=== PATIENT | female | born 1995 | race Caucasian/White ===

== ENCOUNTER 2018-05-10 01:35 | Outpatient (CLI) | payer SELFPAY ==
[2018-05-10 02:20] LABS: Amorphous Sediment,Urine Rare /hpf; Appearance,Urine Turbid (Clear); Bacteria,Urine Moderate /hpf; Bilirubin,Urine Negative (Negative); Blood,Urine Negative (Negative); Color,Urine Yellow; Glucose,Urine (UA) Negative (Negative); Ketones,Urine Negative (Negative); Leukocyte Esterase,Urine Negative (Negative); Mucus,Urine Few /hpf; Nitrite,Urine Negative (Negative); Protein,Urine Trace (Negative); Specific Gravity,Urine 1.019 (1.001-1.035); Squamous Epithelial Cell,Urine 1 /hpf (0-4); Urobilinogen,Urine <2.0 mg/dL (<2.0); WBC,Urine 6 /hpf (0-5)
[2018-05-10 03:08] VITALS: TEMP 99
[2018-05-10 03:11] VITALS: BP 131/63; PULSE 112; RESP 16
--- NOTE | 2018-05-10 07:09 | P.MSEPDOC ---
Presenting Problems - Arrival Data Date of Arrival on Unit: 05/10/18 Time of Arrival on Unit: 01:30 Mode of Transport: Stretcher - Complaint OB-Reason for Admission/Chief Complaint: Possible Onset of Labor Comment: contractions for one hour Medical History - Information : 3 Para: 2 Term: 0 : 1 Abortions: Spontaneous or Elective: 1 Number of Living Children: 1 - Gestational Age Gestational Age by PINEDA (wks/days): 23 Weeks and 0 Days - History Complications: Prior , Smoker Review of Systems - Review of Systems Constitutional: No problems Breast: No problems ENT: No problems Cardiovascular: No problems Respiratory: No problems Gastrointestinal: No problems Genitourinary: No problems Musculoskeletal: No problems Neurological: No problems Skin: No problems Vital Signs - Temperature Temperature: 99 F Temperature Source: Oral - Pulse Right Brachial Pulse Rate: 112 Pulse Assessment Method: Automatic Cuff - Respirations Respiratory Rate: 16 Oxygen Delivery Method: Room Air - Blood Pressure Right Arm Blood Pressure: 131/63 Blood Pressure Mean: 85 Blood Pressure Source: Automatic Cuff Medical Screen Scoring (Pre) - Cervical Exam Dilation: 0 cm = 0 Membranes: Intact - Uterine Contractions Frequency: N/A Duration: N/A Intensity: N/A - Maternal Vital Signs Maternal Temperature: N/A Maternal Blood Pressure: Systolic >139 = 2 Signs of Preeclampsia: Headache = 1 Maternal Respirations: N/A - Pain Assessment Pain Location and Character: Abdomen Pain Scale Used: Numeric (1 - 10) Pain Intensity: 10 Pain Description: *Acute, Cramping Pain Frequency: Intermittent Pain Duration: 1 Pain Duration Units: Hours Pain Behavior: Fidgeting Pain Aggravating Factors: Contractions Non-Pharmacological Interventions: Position/Reposition, Reduce Environmental Stimuli, Relaxation Technique - Maternal Trauma Maternal Trauma: N/A - Assessment Baseline FHR: 135 - Total Score Total Score (Pre): 3 - Level of Risk Level of Risk: Low (0-5) Physician Notification (Pre) - Physician Notified Physician Notified Date: 05/10/18 Physician Notified Time: 01:50 Spoke With: Kelly Rizo Order Received: Yes - Notification Comment Comment: send UA, do not send ffn, if UA unremarkable then may discharge home to follow up with Nhan Medical Screen Scoring (Post) - Cervical Exam Dilation: 0 cm = 0 Membranes: Intact - Uterine Contractions Frequency: N/A Duration: N/A Intensity: N/A - Maternal Vital Signs Maternal Temperature: N/A Maternal Blood Pressure: N/A Signs of Preeclampsia: N/A Maternal Respirations: N/A - Total Score Total Score (Post): 0 - Post Treatment Level of Risk Post Treatment Level of Risk: Low (0-5) Physician Notification (Post) - Physician Notified Physician Notified Time: 02:15 Spoke With: Kelly - Notification Comment Comment: UA unremarkable, pt sleeping and no longer having pain, appt with Nhan Saturday and Meghan Saturday Disposition - Disposition OB Disposition: Discharge to home, Written follow up instructions reviewed Discharge Date: 05/10/18 Discharge Time: 02:35 I agree with the RN Medical Screening Exam: Yes Risk & Benefit of care provided described in d/c instruction: Yes Diagnosis: FALSE LABOR BEFORE 37 COMPLETED WEEKS OF GEST, THIRD TRI
== END 2018-05-10 02:35 | disposition home or self-care (01) ==
LOC: FBPOP 01:35
PROVIDERS: ATTEND Obstetrics & Gynecology
DX: O47.03 False labor before 37 completed weeks of gestation, third trimester (principal); Z3A.23 23 weeks gestation of pregnancy
CPT/HCPCS: 81001; 99213

== ENCOUNTER → 2018-05-27 | Outpatient (CLI) | payer OTHER ==
[2018-05-27 11:49] LABS: HCT 37.2 % (34.0-46.0); HGB 12.6 gm/dL (11.4-16.0); MCH 29.1 pg (25.0-35.0); MCHC 33.9 g/dL (31.0-37.0); MCV 85.9 fL (80.0-100.0); Mean Platelet Volume 7.3; Platelet Count 212 k/uL (150-450); RBC 4.33 m/uL (3.80-5.40); RDW 15.1 % (11.5-15.5); WBC 16.8 k/uL (3.8-10.6)
== END | disposition home or self-care (01) ==
LOC: LABWHC1 10:24
PROVIDERS: ATTEND Obstetrics & Gynecology
DX: Z34.82 Encounter for supervision of other normal pregnancy, second trimester (principal)
CPT/HCPCS: 36415; 82950; 85027

== ENCOUNTER 2018-06-10 20:00 | Outpatient (CLI) | payer OTHER ==
[2018-06-10 20:53] LABS: Appearance,Urine Cloudy (Clear); Bacteria,Urine Moderate /hpf; Bilirubin,Urine Negative (Negative); Blood,Urine Trace (Negative); Budding Yeast,Urine Occasional /hpf; Color,Urine Yellow; Glucose,Urine (UA) Negative (Negative); Ketones,Urine 3+ (Negative); Leukocyte Esterase,Urine Large (Negative); Mucus,Urine Occasional /hpf; Nitrite,Urine Negative (Negative); Protein,Urine 1+ (Negative); RBC,Urine 16 /hpf (0-5); Specific Gravity,Urine 1.021 (1.001-1.035); Squamous Epithelial Cell,Urine 7 /hpf (0-4); WBC,Urine 21 /hpf (0-5)
[2018-06-10 21:09] VITALS: BP 118/61; PULSE 129; RESP 16; TEMP 96.8
[2018-06-10] MEDS ORDERED: ceFAZolin IN SWFI 2 GM/20 ML SYRINGE IVP STA (21:28)
[2018-06-10] MEDS ORDERED: LACTATED RINGERS 1,000 ML IV SCH (21:30)
--- NOTE | 2018-06-11 07:30 | P.MSEPDOC ---
Presenting Problems - Arrival Data Date of Arrival on Unit: 06/10/18 Time of Arrival on Unit: 20:00 Mode of Transport: Wheelchair - Complaint OB-Reason for Admission/Chief Complaint: Rule Out SROM, Pain, Signs/Symptoms UTI Comment: Patient has been having pain in bilateral thighs up to her groin that is aching and tender, states she is also having pain from the center of her abdomen to her vagina. States that she has been urinating a lot, and is unsure if her water is broke because she does feel like she is leaking, denies wearing a pad in at this time. No vaginal bleeding or intercourse in the last 24 hours. Patient had her last baby at approximately 34 weeks. Medical History - Information : 5 Para: 1 Term: 0 : 1 Abortions: Spontaneous or Elective: 3 Number of Living Children: 1 - Gestational Age Gestational Age by PINEDA (wks/days): 27 Weeks and 1 Days - History Complications: Prior , Smoker Review of Systems - Review of Systems Constitutional: No problems Breast: No problems ENT: No problems Cardiovascular: No problems Respiratory: No problems Gastrointestinal: No problems Genitourinary: No problems Musculoskeletal: No problems Neurological: No problems Skin: No problems Vital Signs - Temperature Temperature: 96.8 F Temperature Source: Temporal Artery Scan - Pulse Pulse Oximetery Pulse Rate: 129 Pulse Assessment Method: Pulse Oximetry - Respirations Respiratory Rate: 16 Oxygen Delivery Method: Room Air - Blood Pressure Sitting Blood Pressure: 118/61 Blood Pressure Mean: 80 Blood Pressure Source: Automatic Cuff Medical Screen Scoring (Pre) - Cervical Exam Dilation: 0 cm = 0 Membranes: Intact - Uterine Contractions Frequency: N/A Duration: N/A Intensity: N/A - Maternal Vital Signs Maternal Temperature: N/A Maternal Blood Pressure: N/A Signs of Preeclampsia: N/A Maternal Respirations: N/A - Pain Assessment Pain Location and Character: Abdomen, Thigh Pain Scale Used: Numeric (1 - 10) Pain Intensity: 8 Pain Management Goal: 3 Pain Description: *Acute, Aching, Sore Pain Radiation Location: 0 Pain Frequency: Intermittent Pain Duration: 20 Pain Duration Units: Minutes Pain Behavior: Vocalization Effects of Pain: 0 Pain Aggravating Factors: Activity - Maternal Trauma Maternal Trauma: N/A - Assessment Baseline FHR: 130 Heart Rate - NICHD Category: Category I (Normal) = 0 NST: Reactive Position: N/A Station: N/A - Total Score Total Score (Pre): 0 - Level of Risk Level of Risk: Low (0-5) Physician Notification (Pre) - Physician Notified Physician Notified Date: 06/10/18 Physician Notified Time: 20:29 Physician/Practitioner Notifed:: Dr. Danielson New Order Received: Yes - Notification Comment Comment: Dr. Danielson orders urinalysis, collect and send FFN, Collect amnisure, and gently check cervix, call physician with report. Dr. Danielson called with report at [phone] orders given to initiate IV and give patient a 1 L bolus of LR, give patient a one time dose of kefzol 2 grams ivpb, encourage patient to increase fluids, send urine for culture, and instruct patient to call office in the am to see if Dr. Justin would like to continue antibiotic treatment. Disposition - Disposition OB Disposition: Discharge to home, Written follow up instructions reviewed Discharge Date: 06/10/18 Discharge Time: 22:15 I agree with the RN Medical Screening Exam: Yes Risk & Benefit of care provided described in d/c instruction: Yes Diagnosis: DEHYDRATION
== END 2018-06-10 22:15 | disposition home or self-care (01) ==
LOC: FBPOP 20:00
PROVIDERS: ATTEND Obstetrics & Gynecology
DX: O21.1 Hyperemesis gravidarum with metabolic disturbance (principal); Z3A.27 27 weeks gestation of pregnancy
CPT/HCPCS: 59025; 96365; 96375; 84112; 82731; 81001; 87086; G0463; J0690; 99214

== ENCOUNTER 2018-06-23 20:59 | Outpatient (CLI) | payer OTHER ==
[2018-06-23 21:15] VITALS: BP 123/91; PULSE 110; RESP 18; TEMP 98.8
--- NOTE | 2018-06-24 08:27 | P.MSEPDOC ---
Presenting Problems - Arrival Data Date of Arrival on Unit: 06/23/18 Time of Arrival on Unit: 20:59 Mode of Transport: Wheelchair - Complaint OB-Reason for Admission/Chief Complaint: NST Comment: Decreased movement since "03:30 yesterday" Medical History - Information : 5 Para: 1 Term: 0 : 1 Abortions: Spontaneous or Elective: 3 Number of Living Children: 1 - Gestational Age Gestational Age by PINEDA (wks/days): 29 Weeks and 0 Days - History Complications: Prior , Smoker Review of Systems - Review of Systems Constitutional: No problems Breast: No problems ENT: No problems Cardiovascular: No problems Respiratory: No problems Gastrointestinal: No problems Genitourinary: No problems Musculoskeletal: No problems Neurological: No problems Skin: No problems Vital Signs - Temperature Temperature: 98.8 F Temperature Source: Oral - Pulse Pulse Oximetery Pulse Rate: 110 Pulse Assessment Method: Automatic Cuff - Respirations Respiratory Rate: 18 Oxygen Delivery Method: Room Air - Blood Pressure Sitting Blood Pressure: 123/91 Blood Pressure Mean: 101 Blood Pressure Source: Automatic Cuff Medical Screen Scoring (Pre) - Cervical Exam Dilation: Exam Deferred Effacement: Exam Deferred Membranes: Intact - Uterine Contractions Frequency: N/A Duration: N/A Intensity: N/A - Maternal Vital Signs Maternal Temperature: N/A Maternal Blood Pressure: Diastolic > 89 = 1 Signs of Preeclampsia: N/A Maternal Respirations: N/A - Pain Assessment Pain Scale Used: Numeric (1 - 10) Pain Intensity: 0 - Total Score Total Score (Pre): 1 - Level of Risk Level of Risk: Low (0-5) Physician Notification (Pre) - Physician Notified Physician Notified Date: 06/23/18 Physician Notified Time: 21:26 Physician/Practitioner Notifed:: Dr. Danielson New Order Received: Yes - Notification Comment Comment: Okay to discharge patient home with instructions, educate patient on kick counts, and instruct patiet to keep regularly scheduled appointment with Dr. Justin. Disposition - Disposition OB Disposition: Discharge to home, Written follow up instructions reviewed Discharge Date: 06/23/18 Discharge Time: 21:30 I agree with the RN Medical Screening Exam: Yes Risk & Benefit of care provided described in d/c instruction: Yes Diagnosis: DECREASED MOVEMENTS, THIRD TRIMESTER, UNSP
== END 2018-06-23 21:30 | disposition home or self-care (01) ==
LOC: FBPOP 20:59
PROVIDERS: ATTEND Obstetrics & Gynecology
DX: O36.8130 Decreased fetal movements, third trimester, not applicable or unspecified (principal); Z3A.29 29 weeks gestation of pregnancy
CPT/HCPCS: 59025; G0463; 99213

== ENCOUNTER 2018-07-28 18:31 | Observation (INO) | payer OTHER ==
[2018-07-28 20:14] LABS: ALT 24 U/L (9-52); AST 15 U/L (14-36); Anion Gap 5 mmol/L; Blood Urea Nitrogen 10 mg/dL (7-17); Calcium 8.7 mg/dL (8.4-10.2); Carbon Dioxide 25 mmol/L (22-30); Chloride 106 mmol/L (98-107); Glucose 79 mg/dL (74-99); Potassium 4.4 mmol/L (3.5-5.1); Sodium 136 mmol/L (137-145)
--- NOTE | 2018-07-28 21:04 | US ---
EXAMINATION TYPE: US OB >= 14 wk fetus DATE OF EXAM: 07/28/2018 COMPARISON: None CLINICAL HISTORY: decreased movementBleeding TECHNIQUE: Transabdominal (TA) GESTATIONAL AGE / DATING Physician Established: (34 weeks/0 days) EDC: 09/08/2018 Dates by LMP: (34 weeks/0 days) EDC: 09/08/2018 Dates by First Scan: No previous this is first scan Dates by Current Scan: (35 weeks/4 days) EDC: 08/28/2018 SURVEY IUP: Single PLACENTA: Fundal PREVIA: No Previa DARIUSZ: 16.6 cm Normal CERVICAL LENGTH (transabdominal: norm > 3.0cm): 3.4 cm BIOMETRY PRESENTATION: Vertex LIE: Longitudinal BPD: 9.28 cm 37 weeks / 5 days HC: 32.34 cm 36 weeks / 4 days AC: 32.05 cm 36 weeks / 0 days FL: 6.76 cm 34 weeks / 5 days ESTIMATED WEIGHT IN GRAMS: 2799 grams ESTIMATED WEIGHT IN LBS/OZ: 6 lbs. 3 oz. WEIGHT PERCENTAGE BASED ON ESTABLISHED DATES: 91.9% HC/AC: 1.0 cm Normal FL/AC: 21.11cm Normal HEART RATE: 151 bpm RHYTHM: Normal IMPRESSION: VIABLE IUP 35W4D PINEDA 08/28/2018 HR 151 BPM.
[2018-07-28 21:58] LABS: Basophils # (A) 0.1 k/uL (0-0.2); Basophils % (A) 0 %; Eosinophils # (A) 0.1 k/uL (0-0.7); Eosinophils % (A) 1 %; HCT 35.1 % (34.0-46.0); HGB 11.4 gm/dL (11.4-16.0); Lymphocytes # (A) 2.3 k/uL (1.0-4.8); Lymphocytes % (A) 15 %; MCH 27.9 pg (25.0-35.0); MCHC 32.6 g/dL (31.0-37.0); MCV 85.5 fL (80.0-100.0); Mean Platelet Volume 8.2; Monocytes % (A) 7 %; Neutrophils % (A) 74 %; Platelet Count 201 k/uL (150-450); RDW 14.9 % (11.5-15.5)
[2018-07-28] MEDS ORDERED: ZOLPIDEM 5 MG TAB PO PRN (22:30)
[2018-07-28] MEDS ORDERED: ACETAMINOPHEN TAB 325 MG TAB PO PRN (22:30)
--- NOTE | 2018-07-28 22:44 | P.HPOB ---
History of Present Illness H&P Date: 07/28/18 Chief Complaint: vaginal bleeding, 23 year old presents at 34 weeks with vaginal bleeding and cramping. Her cervix is 2-3 cm dilated, 90% effaced, and -2 station. Her contractions are very irregular and not changing her cervix. The vaginal bleeding has been coming and going for weeks but is present today and bright red. She also thought she might have broken her water. Amnio sure was negative at a different hospital and negative again here today. Ultrasound here showed an DARIUSZ of 16 cm. The placenta was shown to be fundal and normal. When I was about to discharge her home she had another gush of bright red bleeding. I will keep her in the hospital overnight to monitor her bleeding and monitor the baby's heart tones. May consult with M tomorrow to determine further course of action. She did receive 2 doses of steroids last week from maternal- medicine. Review of Systems All systems: negative Constitutional: Denies chills, Denies fever Eyes: denies blurred vision, denies pain Ears, nose, mouth and throat: Denies headache, Denies sore throat Cardiovascular: Denies chest pain, Denies shortness of breath Respiratory: Denies cough Gastrointestinal: Denies abdominal pain, Denies diarrhea, Denies nausea, Denies vomiting Genitourinary: Denies dysuria, Denies hematuria Musculoskeletal: Denies myalgias Integumentary: Denies pruritus, Denies rash Neurological: Denies numbness, Denies weakness Psychiatric: Denies anxiety, Denies depression Endocrine: Denies fatigue, Denies weight change Past Medical History Additional Past Medical History / Comment(s): OB history: She has had 4 miscarriages, including 1 at 14 weeks, she has 1 live and this is her sixth . She has been seeing Dr. Justin since the first trimester. History of Any Multi-Drug Resistant Organisms: None Reported Smoking Status: Current every day smoker Medications and Allergies Home Medications Medication Instructions Recorded Confirmed Type No Known Home Medications 06/23/18 07/28/18 History Allergies Allergy/AdvReac Type Severity Reaction Status Date / Time diphenhydramine Allergy Anaphylaxis Verified 06/23/18 21:10 [From Benadryl] Exam Osteopathic Statement: *. No significant issues noted on an osteopathic structural exam other than those noted in the History and Physical/Consult. Intake and Output 07/28/18 07/28/18 07/28/18 06:59 14:59 22:59 Other: Weight 97.976 kg Heart: Regular rate and rhythm Lungs: Clear to auscultation bilaterally Abdomen: Soft, nontender Extremities: Negative Homans sign Results Result Diagrams: 07/28/18 19:38 07/28/18 19:38 Abnormal Lab Results - Last 24 Hours (Table) 07/28/18 07/28/18 Range/Units 19:38 19:38 WBC 15.0 H (3.8-10.6) k/uL Neutrophils # 11.0 H (1.3-7.7) k/uL Sodium 136 L (137-145) mmol/L Creatinine 0.42 L (0.52-1.04) mg/dL Assessment and Plan (1) Antepartum bleeding, third trimester Current Visit: Yes Status: Acute Code(s): O46.93 - ANTEPARTUM HEMORRHAGE, UNSPECIFIED, THIRD TRIMESTER SNOMED Code(s): 051887001 Plan: 1. Admit to family place 2. Continuous monitoring 3. Reevaluate in several hours 4. Possible consultation with maternal- medicine
[2018-07-28 23:47] VITALS: RESP 16; BMI 50.2
[2018-07-29 04:50] VITALS: BP 128/67; PULSE 98; TEMP 97
[2018-07-29] MEDS ORDERED: FAMOTIDINE 20 MG TAB PO STA (10:45)
--- NOTE | 2018-07-29 10:47 | US ---
EXAMINATION TYPE: US OB limited DATE OF EXAM: 07/29/2018 COMPARISON: 07/28/2018 CLINICAL HISTORY: 23-year-old female DARIUSZ. Blood and fluid seen during exam this am EXAM PERFORMED: OBTA FINDINGS: GESTATIONAL AGE / DATING Physician Established: (34 weeks/1 days) EDC: 09/08/2018 No growth performed on today?s study per ordering physician SURVEY DARIUSZ: 19.7 cm , within normal limits Ultrasound evidence of premature rupture of membranes? NO PRESENTATION: Vertex LIE: Longitudinal HEART RATE: 140 bpm RHYTHM: Normal IMPRESSION: Single live intrauterine . Limited OB ultrasound performed for assessment of DARIUSZ. DARIUSZ = 19.7 cm, within acceptable limits.
--- NOTE | 2018-07-29 11:14 | P.TRANS ---
Providers Date of admission: 07/28/18 22:39 Expected date of discharge: 07/29/18 Attending physician: Monika Rios Primary care physician: Stated None Hospital Course: Patient is a 23-year-old at 34 weeks gestation arrives complaining of possible rupture membranes and contractions. She is had multiple episodes of labor has been transferred previously for same. [facility] the care of Dr. Christianson whom I spoke with earlier today. Last night she was seen by Dr. Rios and apparently had a large gush of fluid and blood. However baby, has looked well and has had a category 1 tracing the entire time. She was dilated approximately 2 half centimeters last night she is made some change the last 8-10 hours from to have to potentially 3/2 cm 80-90% effaced and -3 station. There is no evidence of gross rupture membranes with an DARIUSZ between 16 and 19. There is also no evidence of abruption that can be seen on ultrasound and there is been no active bleeding throughout the morning. However, due to her status and rating her contractions at 8 out of 10 and with her being only 34 weeks and with a history of 32 week previous delivery, we'll plan transferred to [facility]. Should she make it past 35 weeks they may ultimately transfer active pus or discharge her to be seen outpatient again. I am very concerned with her current status as she is had a bad history and multiple episodes of labor during this . It is safest from my standpoint to have her to place where they can manage a very early baby. On physical exam vital signs are currently stable and she is afebrile. Heart regular, lungs clear, extremities are without pain. heart tones were in the 130s to 140s and have been reactive. Again no active bleeding is noted on exam. Only some dark blood noted at this time. Assessment intrauterine at 34 weeks. Plan transferred care. Patient Condition at Discharge: Stable Plan - Transfer Summary Transfer Medications: Active Medications Generic Name Dose Route Start Last Admin Trade Name Freq PRN Reason Stop Dose Admin Acetaminophen 650 mg 07/28/18 22:30 Tylenol Tab PO Q6HR PRN Mild Pain Multivi/Iron Carb/Fe Sulf/FA/Prenat 1 each 07/29/18 12:00 -U Capsule PO DAILY@1200 HUMA Zolpidem Tartrate 5 mg 07/28/18 22:30 Ambien PO HS PRN Insomnia
[2018-07-29] MEDS ORDERED: PRENATAL VIT-IRON-FOLIC ACID 1 EACH CAP PO SCH (12:00)
== END 2018-07-29 12:27 ==
LOC: FBPOP 18:31 → 4FBP 22:39
PROVIDERS: ADMIT Obstetrics & Gynecology; ATTEND Obstetrics & Gynecology
DX: O46.93 Antepartum hemorrhage, unspecified, third trimester (principal); Z3A.34 34 weeks gestation of pregnancy; O99.333 Smoking (tobacco) complicating pregnancy, third trimester; F17.200 Nicotine dependence, unspecified, uncomplicated; Z88.8 Allergy status to other drugs, medicaments and biological substances; Z87.59 Personal history of other complications of pregnancy, childbirth and the puerperium
CPT/HCPCS: 59025; 84112; 80048; 84450; 84460; 85025; 76805; 76815; G0463; G0378 ×2; 99215

== ENCOUNTER 2018-10-10 12:58 | Emergency (ER) | payer OTHER ==
[2018-10-10] MEDS ORDERED: ONDANSETRON 4 MG/2 ML VIAL IVP STA (14:00)
[2018-10-10] MEDS ORDERED: KETOROLAC 30 MG/ML 1 ML VIAL IVP STA (14:00)
[2018-10-10] MEDS ORDERED: MORPHINE SULFATE 2 MG/ML SYRINGE IVP STA (14:00)
[2018-10-10] MEDS ORDERED: SODIUM CHLORIDE 0.9% 1,000 ML IV STA (14:00)
--- NOTE | 2018-10-10 14:33 | ED ---
Abdominal Pain HPI - General Chief Complaint: Abdominal Pain Stated Complaint: Abd Pain Time Seen by Provider: 10/10/18 13:22 Source: patient, RN notes reviewed, old records reviewed Mode of arrival: ambulatory Limitations: no limitations - History of Present Illness Initial Comments: 23-year-old female presents emergency arm today to plan of right upper quadrant abdominal pain, polyuria. Patient ports are opacity she's had increasing pain. She reports nausea but no vomiting. Patient states that she has had no burning sensation with urination. She denies vaginal discharge. Denies chance of . At this time patient's that she has no known family to gallbladder disease. She reports the pain is worse with eating. - Related Data Previous Rx's Medication Instructions Recorded Ibuprofen 600 mg PO TID #20 tablet 10/10/18 Ondansetron Odt [Zofran Odt] 4 mg PO Q8HR PRN #20 tab 10/10/18 traMADol HCL [Ultram] 50 mg PO Q6HR PRN 3 Days #12 tab 10/10/18 Allergies Allergy/AdvReac Type Severity Reaction Status Date / Time diphenhydramine Allergy Anaphylaxis Verified 10/10/18 13:42 [From Benadryl] tomato AdvReac Anaphylaxis Verified 10/10/18 13:42 Review of Systems ROS Statement: Those systems with pertinent positive or pertinent negative responses have been documented in the HPI. ROS Other: All systems not noted in ROS Statement are negative. Past Medical History Past Medical History: No Reported History Additional Past Medical History / Comment(s): OB history: She has had 4 miscarriages, including 1 at 14 weeks, she has 1 live and this is her sixth . She has been seeing Dr. Justin since the first trimester. History of Any Multi-Drug Resistant Organisms: None Reported Additional Past Surgical History / Comment(s): D&C x 3 Past Anesthesia/Blood Transfusion Reactions: No Reported Reaction Past Psychological History: No Psychological Hx Reported Smoking Status: Current every day smoker Past Alcohol Use History: None Reported Past Drug Use History: None Reported - Past Family History Father History Unknown: Yes Family Medical History: Cancer Mother History Unknown: Yes Family Medical History: Congestive Heart Failure (CHF) General Exam - General Exam Comments Initial Comments: 23-year-old female. Alert and oriented. No significant distress. General: Well appearing, well nourished, in no distress. Oriented x 3, normal mood and affect . Ambulating without difficulty. Skin: Good turgor, no rash, unusual bruising or prominent lesions Hair: Normal texture and distribution. HEENT: Head: Normocephalic, atraumatic, no visible or palpable masses, depressions, or scaring. Eyes: Visual acuity intact, conjunctiva clear, sclera non-icteric, EOM intact, PERRL. Ears: EACs clear, TMs translucent & cone of light visualized. hearing intact. Nose: No external lesions, mucosa non-inflamed, septum and turbinates normal Neck: Supple, without lesions, bruits, or adenopathy, thyroid non-enlarged and non-tender Heart: No cardiomegaly or thrills; regular rate and rhythm, no murmur or gallop Lungs: Clear to auscultation and percussion Abdomen: Bowel sounds normal, right upper quadrant tenderness. Back: Spine normal without deformity or tenderness, no CVA tenderness Extremities: No amputations or deformities, cyanosis, edema or varicosities, peripheral pulses intact Musculoskeletal: Normal gait and station. No misalignment, asymmetry, crepitation, defects, tenderness, masses, effusions, decreased range of motion, instability, atrophy or abnormal strength or tone in the head, neck, spine, ribs , pelvis or extremities. Neurologic: CN 2-12 normal. Sensation to pain, touch, and proprioception normal. DTRs normal in upper and lower extremities. No pathologic reflexes. Psychiatric: Oriented X3, intact recent and remote memory, judgment and insight , normal mood and affect. Limitations: no limitations Course Vital Signs 10/10/18 10/10/18 13:10 16:15 Temperature 97.8 F 98.0 F Pulse Rate 100 84 Respiratory 18 20 Rate Blood Pressure 146/89 124/76 O2 Sat by Pulse 98 99 Oximetry Medical Decision Making - Medical Decision Making 23-year-old female presents for his from today 3 days of nausea, and right upper quadrant abdominal pain. Lab work was completed. Mild elevation of liver enzymes. She is no fever at this time. White blood cell count was within normal limits. Ultrasound of the gallbladder was performed. Positive for gallbladder stones. No focal findings suggesting acute cholecystitis as there is no obstruction. Patient was reevaluated continue to have some pain. Given another dose pain medicine. I discussed at this time we could offer admission for further evaluation and consult the surgeon. Patient states she has to go take care of her 2-month-old daughter. Patient states she must be discharged. We'll discharge the Patient with a short course of pain medication nausea medicine and temperature meds. Discussed if she has any fevers or other worsening symptoms she must return for reevaluation. Patient agrees to treatment plan. - Lab Data Result diagrams: 10/10/18 14:20 10/10/18 14:20 Lab Results 10/10/18 10/10/18 10/10/18 Range/Units 14:20 14:20 14:20 WBC 9.5 (3.8-10.6) k/uL RBC 5.20 (3.80-5.40) m/uL Hgb 13.6 (11.4-16.0) gm/dL Hct 41.6 (34.0-46.0) % MCV 80.1 (80.0-100.0) fL MCH 26.2 (25.0-35.0) pg MCHC 32.7 (31.0-37.0) g/dL RDW 14.4 (11.5-15.5) % Plt Count 242 (150-450) k/uL Neutrophils % 66 % Lymphocytes % 22 % Monocytes % 6 % Eosinophils % 3 % Basophils % 0 % Neutrophils # 6.2 (1.3-7.7) k/uL Lymphocytes # 2.1 (1.0-4.8) k/uL Monocytes # 0.6 (0-1.0) k/uL Eosinophils # 0.3 (0-0.7) k/uL Basophils # 0.0 (0-0.2) k/uL PT 9.5 (9.0-12.0) sec INR 1.0 (<1.2) APTT 24.8 (22.0-30.0) sec Sodium 141 (137-145) mmol/L Potassium 4.2 (3.5-5.1) mmol/L Chloride 106 (98-107) mmol/L Carbon Dioxide 30 (22-30) mmol/L Anion Gap 5 mmol/L BUN 20 H (7-17) mg/dL Creatinine 0.66 (0.52-1.04) mg/dL Est GFR (CKD-EPI)AfAm >90 (>60 ml/min/1.73 sqM) Est GFR (CKD-EPI)NonAf >90 (>60 ml/min/1.73 sqM) Glucose 99 (74-99) mg/dL Calcium 9.1 (8.4-10.2) mg/dL Total Bilirubin 0.3 (0.2-1.3) mg/dL AST 45 H (14-36) U/L ALT 103 H (9-52) U/L Alkaline Phosphatase 89 (38-126) U/L Total Protein 6.7 (6.3-8.2) g/dL Albumin 3.7 (3.5-5.0) g/dL Amylase 56 (30-110) U/L Lipase 88 (23-300) U/L Urine Color Urine Appearance (Clear) Urine pH (5.0-8.0) Ur Specific [place] (1.001-1.035) Urine Protein (Negative) Urine Glucose (UA) (Negative) Urine Ketones (Negative) Urine Blood (Negative) Urine Nitrite (Negative) Urine Bilirubin (Negative) Urine Urobilinogen (<2.0) mg/dL Ur Leukocyte Esterase (Negative) Urine RBC (0-5) /hpf Urine WBC (0-5) /hpf Ur Squamous Epith Cells (0-4) /hpf Amorphous Sediment (None) /hpf 10/10/18 Range/Units 14:48 WBC (3.8-10.6) k/uL RBC (3.80-5.40) m/uL Hgb (11.4-16.0) gm/dL Hct (34.0-46.0) % MCV (80.0-100.0) fL MCH (25.0-35.0) pg MCHC (31.0-37.0) g/dL RDW (11.5-15.5) % Plt Count (150-450) k/uL Neutrophils % % Lymphocytes % % Monocytes % % Eosinophils % % Basophils % % Neutrophils # (1.3-7.7) k/uL Lymphocytes # (1.0-4.8) k/uL Monocytes # (0-1.0) k/uL Eosinophils # (0-0.7) k/uL Basophils # (0-0.2) k/uL PT (9.0-12.0) sec INR (<1.2) APTT (22.0-30.0) sec Sodium (137-145) mmol/L Potassium (3.5-5.1) mmol/L Chloride (98-107) mmol/L Carbon Dioxide (22-30) mmol/L Anion Gap mmol/L BUN (7-17) mg/dL Creatinine (0.52-1.04) mg/dL Est GFR (CKD-EPI)AfAm (>60 ml/min/1.73 sqM) Est GFR (CKD-EPI)NonAf (>60 ml/min/1.73 sqM) Glucose (74-99) mg/dL Calcium (8.4-10.2) mg/dL Total Bilirubin (0.2-1.3) mg/dL AST (14-36) U/L ALT (9-52) U/L Alkaline Phosphatase (38-126) U/L Total Protein (6.3-8.2) g/dL Albumin (3.5-5.0) g/dL Amylase (30-110) U/L Lipase (23-300) U/L Urine Color Yellow Urine Appearance Clear (Clear) Urine pH 8.5 H (5.0-8.0) Ur Specific [place] 1.018 (1.001-1.035) Urine Protein 1+ H (Negative) Urine Glucose (UA) Negative (Negative) Urine Ketones Negative (Negative) Urine Blood Negative (Negative) Urine Nitrite Negative (Negative) Urine Bilirubin Negative (Negative) Urine Urobilinogen <2.0 (<2.0) mg/dL Ur Leukocyte Esterase Negative (Negative) Urine RBC <1 (0-5) /hpf Urine WBC 2 (0-5) /hpf Ur Squamous Epith Cells 7 H (0-4) /hpf Amorphous Sediment Rare H (None) /hpf - Radiology Data Radiology results: report reviewed Gallstones without convincing secondary evidence for acute cholecystitis. However Patient has positive Bean sign and right upper quadrant pain as well as nausea and vomiting cannot entirely be excluded. It is further investigated by surgical expiration HIDA scan should be based on clinical correlation. Disposition Clinical Impression: Biliary colic, Elevated transaminase level Disposition: HOME SELF-CARE Condition: Stable Instructions: Biliary Colic (ED) Additional Instructions: Patient advised to all up with primary care physician surgeon. Clear liquid and bland diet. Take medication as prescribed. Return to emergency department if any alarming signs or symptoms occur. Prescriptions: Ibuprofen 600 mg PO TID #20 tablet Ondansetron Odt [Zofran Odt] 4 mg PO Q8HR PRN #20 tab PRN Reason: Nausea traMADol HCL [Ultram] 50 mg PO Q6HR PRN 3 Days #12 tab PRN Reason: Pain Is patient prescribed a controlled substance at d/c from ED?: No Referrals: None,Stated [Primary Care Provider] - 1-2 days Sharon Carroll DO [Doctor of Osteopathic Medicine] - 1-2 days Time of Disposition: 16:15
[2018-10-10 14:57] LABS: Basophils % (A) 0 %; Eosinophils # (A) 0.3 k/uL (0-0.7); Eosinophils % (A) 3 %; HCT 41.6 % (34.0-46.0); HGB 13.6 gm/dL (11.4-16.0); Lymphocytes # (A) 2.1 k/uL (1.0-4.8); Lymphocytes % (A) 22 %; MCH 26.2 pg (25.0-35.0); MCHC 32.7 g/dL (31.0-37.0); MCV 80.1 fL (80.0-100.0); Mean Platelet Volume 6.9; Monocytes # (A) 0.6 k/uL (0-1.0); Monocytes % (A) 6 %; Neutrophils # (A) 6.2 k/uL (1.3-7.7); Neutrophils % (A) 66 %; Platelet Count 242 k/uL (150-450); RDW 14.4 % (11.5-15.5); WBC 9.5 k/uL (3.8-10.6)
[2018-10-10 15:06] LABS: ALT 103 U/L (9-52); AST 45 U/L (14-36); Albumin 3.7 g/dL (3.5-5.0); Alkaline Phosphatase 89 U/L (38-126); Amylase 56 U/L (30-110); Anion Gap 5 mmol/L; Blood Urea Nitrogen 20 mg/dL (7-17); Calcium 9.1 mg/dL (8.4-10.2); Carbon Dioxide 30 mmol/L (22-30); Chloride 106 mmol/L (98-107); Glucose 99 mg/dL (74-99); Lipase 88 U/L (23-300); Potassium 4.2 mmol/L (3.5-5.1); Sodium 141 mmol/L (137-145); Total Bilirubin 0.3 mg/dL (0.2-1.3); Total Protein 6.7 g/dL (6.3-8.2)
[2018-10-10 15:14] LABS: Amorphous Sediment,Urine Rare /hpf; Appearance,Urine Clear (Clear); Bilirubin,Urine Negative (Negative); Blood,Urine Negative (Negative); Color,Urine Yellow; Glucose,Urine (UA) Negative (Negative); Ketones,Urine Negative (Negative); Leukocyte Esterase,Urine Negative (Negative); Nitrite,Urine Negative (Negative); PH, Urine 8.5 (5.0-8.0); Protein,Urine 1+ (Negative); RBC,Urine <1 /hpf (0-5); Specific Gravity,Urine 1.018 (1.001-1.035); Squamous Epithelial Cell,Urine 7 /hpf (0-4); Urobilinogen,Urine <2.0 mg/dL (<2.0); WBC,Urine 2 /hpf (0-5)
[2018-10-10 15:20] LABS: Partial Thromboplastin Time 24.8 sec (22.0-30.0); Prothrombin Time 9.5 sec (9.0-12.0)
--- NOTE | 2018-10-10 15:22 | US ---
EXAMINATION TYPE: US gallbladder DATE OF EXAM: 10/10/2018 COMPARISON: NONE CLINICAL HISTORY: Pain. RUQ pain and N/V x 3 days EXAM MEASUREMENTS: Liver Length: 15.4 cm Gallbladder Wall: 0.2 cm CBD: 0.5 cm Right Kidney: 11.0 x 4.5 x 4.9 cm Pancreas: visualized portions wnl, tail obscured by overlying midline bowel gas Liver: wnl Gallbladder: cholelithiasis Evidence for sonographic Bean's sign: yes CBD: wnl Right Kidney: wnl IMPRESSION: Gallstones without convincing secondary ultrasound evidence for acute cholecystitis howev er in patient with positive Bean's sign and right upper quadrant pain as well as nausea and vomitin g it cannot be entirely excluded. Need to further investigate by surgical exploration or HIDA scan sh ould be based on clinical correlation.
[2018-10-10] MEDS ORDERED: MORPHINE SULFATE 4 MG/ML SYRINGE IVP STA (16:13)
[2018-10-10 16:40] VITALS: BP 124/76; PULSE 84; RESP 20; TEMP 98
== END 2018-10-10 16:48 | disposition home or self-care (01) ==
LOC: EC 12:58
DX: K80.70 Calculus of gallbladder and bile duct without cholecystitis without obstruction (principal); R74.0 Nonspecific elevation of levels of transaminase and lactic acid dehydrogenase [LDH]; F17.200 Nicotine dependence, unspecified, uncomplicated; Z91.018 Allergy to other foods; Z88.8 Allergy status to other drugs, medicaments and biological substances
CPT/HCPCS: 36415; 80053; 82150; 83690; 85025; 85610; 85730; 81001; 76705; 99285; 96374; 96375 ×2; 96376; 96361; J2270 ×2; J2405; J1885